=== PATIENT | male | born 1965 | race Caucasian/White ===

== ENCOUNTER 2018-10-17 15:20 | Emergency (ER) | payer OTHER ==
[~2018-10-17] VITALS: Ht 172.7 cm; Wt 84.0 kg
[2018-10-17] MEDS ORDERED: KETOROLAC 60MG/2ML VIAL IM ONE (17:30)
[2018-10-17] MEDS ORDERED: METHOCARBAMOL 500MG TABLET PO ONE (17:30)
[2018-10-17 19:10] VITALS: BP 144/90
== END 2018-10-17 19:11 | disposition home or self-care (01) ==
LOC: ER 16:38
DX: M54.5 Low back pain (principal)
CPT/HCPCS: 96372; 99283; J1885